=== PATIENT | male | born 1945 | race Caucasian/White ===

== ENCOUNTER 2021-03-09 20:52 | Observation (INO) ==
[2021-03-10] MEDS ORDERED: Naloxone 0.4 MG/ML INJ IVP PRN (01:34)
[2021-03-10 02:02] LABS: Basophils % 0.3 %; Eosinophils % 0.3 %
[2021-03-10 02:04] LABS: Hematocrit 44.5 % (37.5-50.1); Hemoglobin 14.2 g/dL (12.9-16.9); Immature Granulocytes % 1.5 % (0-4); Immature Platelets 3.5 % (1.1-6.1); Lymphocytes # 0.7 K/mcL (0.6-4.6); Lymphocytes % 21.1 %; Mean Corpuscular HGB Conc 31.9 g/dL (31.6-35.5); Mean Corpuscular Hemoglobin 29.7 pg (28.0-33.3); Mean Corpuscular Volume 93.1 fL (83.0-100.0); Mean Platelet Volume 10.1 fL (9.4-12.4); Monocytes # 0.2 K/mcL (0.0-1.3); Monocytes % 6.6 %; Neutrophils # 2.3 K/mcL (1.6-8.9); Red Blood Count 4.78 M/mcL (4.19-5.50); Segmented Neutrophils % 70.2 %; White Blood Count 3.3 K/mcL (4.3-11.1)
[2021-03-10 02:05] LABS: Platelet Count 42 K/mcL (140-400)
[2021-03-10 02:10] LABS: Prothrombin Time 11.4 Seconds (9.4-12.1)
[2021-03-10 02:13] LABS: Activated Partial Thrombo Time 71.5 Seconds (26.0-36.0)
[2021-03-10 02:20] LABS: Alanine Aminotransferase 74 Units/L (7-52); Albumin 3.3 g/dL (3.5-5.7); Albumin/Globulin Ratio 1.3 (1.1-2.2); Alkaline Phosphatase 57 Units/L (34-104); Aspartate Amino Transferase 36 Units/L (13-39); BUN/Creatinine Ratio 22 (6-26); Bilirubin,Total 0.6 mg/dL (0.3-1.0); Blood Urea Nitrogen 21 mg/dL (8-23); Carbon Dioxide 27 mEq/L (23-29); Chloride 106 mEq/L (98-107); Globulin 2.6 g/dL (2.4-3.5); Glucose 100 mg/dL (70-105); Osmolality,Calculated 295 (280-300); Potassium 4.1 mEq/L (3.5-5.1); Sodium 141 mEq/L (136-145); Total Protein 5.9 g/dL (6.4-8.9); eGFR For African Americans > 60 (> 60); eGFR For Non-African Americans > 60 (> 60)
[2021-03-10 03:53] VITALS: BP 110/68
[2021-03-10] MEDS ORDERED: levETIRAcetam 250 MG TABLET PO SCH (06:00)
[2021-03-10 06:54] LABS: Influenza A PCR Negative (Negative); Influenza B PCR Negative (Negative); Resp. Syncytial Virus PCR Negative (Negative)
[2021-03-10 06:55] LABS: SARS-CoV-2 by PCR (In House) Negative (Negative)
[2021-03-10] MEDS ORDERED: lisinopriL 5 MG TABLET PO SCH (09:00)
== END 2021-03-10 07:46 | disposition short-term general hospital (02) ==
LOC: 2ANU
PROVIDERS: ADMIT Family Medicine; ATTEND Family Medicine